=== PATIENT | male | born 1950 | race Caucasian/White ===

== ENCOUNTER 2017-03-07 06:17 | Observation (INO) ==
[2017-03-07] MEDS: HYDROmorphone 2 MG/ML VIAL IV PRN ×4 (06:56→10:23)
[2017-03-07] MEDS ORDERED: LACTATED RINGERS 1,000 ML IV SCH ×2 (07:30→17:15)
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
[2017-03-07] MEDS ORDERED: MIDAZOLAM 2 MG/2 ML VIAL ONE (07:37)
[2017-03-07] MEDS ORDERED: MIDAZOLAM 2 MG/2 ML VIAL IV ONE ×2 (07:39→15:40)
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
[2017-03-07 08:17] LABS: Basophils # (Auto) 0 K/mcL (0.0-0.3); Basophils % (Auto) 0.2 % (0.0-2.0); Eosinophils # (Auto) 0.2 K/mcL (0.0-0.7); Eosinophils % (Auto) 1.5 % (0.0-7.0); Granulocytes % (Auto) 85.4 % (38.0-78.0); Lymphocytes # (Auto) 0.7 K/mcL (1.5-4.8); Lymphocytes % (Auto) 6.1 % (15.5-49.0); Mean Cell Volume 92.8 fL (80.0-100.0); Mean Corpuscular HGB Conc 33.7 g/dL (31.0-36.0); Mean Corpuscular Hemoglobin 31.3 pg (26.0-34.0); Monocytes # (Auto) 0.7 K/mcL (0.1-0.9); Monocytes % (Auto) 6.8 % (1.0-12.0); Platelet Count 197 K/mcL (140-440); RBC 4.13 M/mcL (4.50-5.90); Red Cell Distribution Width 14.5 % (11.5-14.5)
[2017-03-07] MEDS ORDERED: ceFAZolin 1 GM VIAL IV ONE (08:29)
[2017-03-07 08:37] LABS: ALT/SGPT 22 U/l (0-40); Albumin/Globulin Ratio 1.5 (1.0-2.3); Alkaline Phosphatase 62 U/L (39-117); Blood Urea Nitrogen 18 mg/dl (8-23)
--- NOTE | 2017-03-07 09:06 | XRay Report ---
HISTORY: Reason for Exam:preop to repair a fractured leg FINDINGS: Mildly prominent increased interstitial lung markings are present throughout both lungs. Lung bones are normal. There is no consolidating infiltrate, mass or congestive heart failure or pleural effusion. The heart size is normal. There is a scoliotic curvature in the thoracic and lumbar spine. IMPRESSION: Mild interstitial lung disease bilaterally. This could be due to pulmonary fibrosis or an interstitial inflammatory process. Interpreted and Authenticated by: Maynor 03/07/17
[2017-03-07 09:49] LABS: Creatine Kinase 615 IU/L (24-195)
[2017-03-07 11:03] LABS: Appearance,Urine CLEAR; Bacteria,Urine 0 /hpf (0); Bilirubin,Urine NEG (NEG); Color,Urine YELLOW; Glucose,Urine (UA) NEGATIVE (NEG); Leukocyte Esterase,Urine NEG /uL (NEG); Mucus,Urine FEW /hpf (0); Protein,Urine NEG (NEG); Specific Gravity,Urine 1.017 (1.000-1.035); Urine Blood 0.03 mg/dL (<0.03); Urine RBC 1 /hpf (0-1); Urine Squamous Epithelial Cell 0 /hpf (0-4); Urine WBC < 1 /hpf (0-4); Urobilinogen,Urine NEG (NEG)
[2017-03-07] MEDS ORDERED: FLUMAZENIL 0.1 MG/ML ML IV ONE (11:25)
[2017-03-07] MEDS ORDERED: MAGNESIUM SULFATE 2 GM/50 ML BAG IV PRN ×2 (11:28→19:16)
[2017-03-07] MEDS ORDERED: POTASSIUM CHLORIDE 20 MEQ PACKET PO PRN ×2 (11:28→19:16)
[2017-03-07] MEDS ORDERED: 0.9 % SODIUM CHLORIDE 1,000 ML IV SCH (11:28)
[2017-03-07] MEDS ORDERED: traZODone HCL 50 MG TABLET PO PRN ×2 (11:28→19:16)
[2017-03-07] MEDS ORDERED: guaiFENesin/CODEINE 10 ML UDC PO PRN ×2 (11:28→19:16)
[2017-03-07] MEDS ORDERED: ACETAMINOPHEN 1,000 MG/100 ML BOTTLE IV PRN (11:28)
[2017-03-07] MEDS ORDERED: ONDANSETRON 4 MG/2 ML VIAL IV PRN ×3 (11:28→19:16)
[2017-03-07] MEDS ORDERED: HYDROmorphone 2 MG/ML VIAL IV PRN ×2 (11:28→19:16)
[2017-03-07] MEDS ORDERED: traMADol 50 MG TABLET PO PRN ×2 (11:28→19:16)
[2017-03-07] MEDS ORDERED: ACETAMINOPHEN 325 MG TABLET PO PRN ×2 (11:28→19:16)
[2017-03-07] MEDS ORDERED: 0.9 % SODIUM CHLORIDE 1,000 ML IV ONE (12:33)
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
[2017-03-07] MEDS ORDERED: 0.9 % SODIUM CHLORIDE 10 ML SYRINGE IV SCH (14:00)
[2017-03-07] MEDS ORDERED: ceFAZolin 1 GM VIAL IV SCH ×2 (15:30→15:45)
[2017-03-07] MEDS ORDERED: PROPOFOL 200 MG/20 ML VIAL IV ONE (15:40)
[2017-03-07] MEDS ORDERED: LIDOCAINE HCL/PF 100 MG/5 ML SYRINGE IV ONE (15:40)
[2017-03-07] MEDS ORDERED: DEXAMETHASONE 10 MG/ML VIAL IV ONE (15:40)
[2017-03-07] MEDS ORDERED: fentaNYL 250 MCG/5 ML VIAL IV ONE (15:40)
[2017-03-07] MEDS ORDERED: ONDANSETRON 4 MG/2 ML VIAL IV ONE (15:40)
[2017-03-07] MEDS ORDERED: ACETAMINOPHEN 1,000 MG/100 ML BOTTLE IV ONE (17:08)
[2017-03-07] MEDS ORDERED: LACTATED RINGERS 250 ML IV PRN (17:08)
[2017-03-07] MEDS ORDERED: IPRATROPIUM/ALBUTEROL 3 ML AMPUL.NEB NEB PRN (17:08)
[2017-03-07] MEDS ORDERED: diphenhydrAMINE 50 MG/ML VIAL IV PRN (17:08)
[2017-03-07] MEDS ORDERED: PROMETHAZINE 25 MG/ML VIAL IV PRN (17:08)
[2017-03-07] MEDS ORDERED: NALOXONE HCL 0.4 MG/ML VIAL IV PRN (17:08)
[2017-03-07] MEDS ORDERED: MEPERIDINE 25 MG/ML SYRINGE IV PRN (17:08)
[2017-03-07] MEDS ORDERED: BENZOCAINE/MENTHOL 1 LOZENGE PO PRN (17:08)
[2017-03-07] MEDS ORDERED: fentaNYL 100 MCG/2 ML VIAL IV PRN (17:08)
--- NOTE | 2017-03-07 17:55 | Brief Operative Note ---
Date of procedure: 03/07/17 Pre-op diagnosis: tibia/fibula fracture Post-op diagnosis: same Procedure: im rodding Grafts/Implants: Yes (juancho) Anesthesia: GETA Complications: none Surgeon: Antonio Garvin Help Desk Operator: Sai Nicole Estimated blood loss (cc): 20 Specimens Removed/Pathology: none sent Condition: stable Disposition: PACU
[2017-03-07] MEDS: FLUMAZENIL 0.1 MG/ML ML IV PRN ×3 (18:27→18:34)
[2017-03-07] MEDS ORDERED: ACETAMINOPHEN 800 MG/80 ML BOTTLE IV PRN (19:16)
[2017-03-07] MEDS ORDERED: HYDROcodone/APAP 10/325MG TABLET PO PRN (19:16)
[2017-03-07] MEDS: 0.9 % SODIUM CHLORIDE 1,000 ML IV SCH (19:37)
[2017-03-07] MEDS ORDERED: ATORVASTATIN 20 MG TABLET PO SCH (21:00)
[2017-03-07] MEDS ORDERED: DOCUSATE SODIUM 100 MG CAPSULE PO SCH (21:00)
[2017-03-07] MEDS ORDERED: SENNOSIDES/DOCUSATE SODIUM 1 TAB TABLET PO SCH (21:00)
[2017-03-07] MEDS: SENNOSIDES/DOCUSATE SODIUM 1 TAB TABLET PO SCH (22:14)
[2017-03-07] MEDS: DOCUSATE SODIUM 100 MG CAPSULE PO SCH (22:14)
[2017-03-07] MEDS: ceFAZolin 1 GM VIAL IV SCH (22:14)
[2017-03-07] MEDS: ATORVASTATIN 20 MG TABLET PO SCH (22:14)
[2017-03-07] MEDS: 0.9 % SODIUM CHLORIDE 10 ML SYRINGE IV SCH (22:16)
[2017-03-08] MEDS: ceFAZolin 1 GM VIAL IV SCH ×3 (05:28→22:19)
[2017-03-08] MEDS: 0.9 % SODIUM CHLORIDE 10 ML SYRINGE IV SCH ×3 (05:28→22:20)
[2017-03-08 06:56] LABS: Mean Cell Volume 93.2 fL (80.0-100.0); Mean Corpuscular HGB Conc 34.1 g/dL (31.0-36.0); Mean Corpuscular Hemoglobin 31.8 pg (26.0-34.0); Platelet Count 194 K/mcL (140-440); Red Cell Distribution Width 14.4 % (11.5-14.5)
[2017-03-08 07:52] LABS: ALT/SGPT 17 U/l (0-40); Albumin 3.1 gm/dL (3.2-5.2); Albumin/Globulin Ratio 1.3 (1.0-2.3); Alkaline Phosphatase 51 U/L (39-117); Bilirubin,Direct 0.3 mg/dL (0.0-0.3); Blood Urea Nitrogen 17 mg/dl (8-23); Gamma Glutamyl Transpeptidase 13 U/L (8-61); Uric Acid 5.7 mg/dL (2.5-8.0)
--- NOTE | 2017-03-08 07:59 | Internal Med Progress Note ---
Medical - PN: Subj Patient information: Note initiated : 03/08/17 at 7:55 am Service Date, if different from initiated Date: [] Patient: Joel Hernandez 66 y/o M admitted on 03/07/17 for Left Lower Leg Injury. Chief Complaint: [] Interval history: 03/07-patient admitted by orthopedics after tib-fib fracture left side. Hospitalist consult for management of medical issue. Patient seen postoperatively. Pain good control. Sedated. Stable hemodynamics. Extremely malnourished. 03/08-dietary consult for nutritional supplements. Pain in good control. No postoperative events. No overnight events including fever chills lightheadedness dizziness chest pain or bleeding. Alert oriented. No concerns expressed by nursing staff. currently on statin and aspirin for history of CVA.. - Constitutional Vitals: Vital Signs Temp Pulse Resp BP Pulse Ox 96.7 F L 106 H 12 136/70 95 03/08/17 07:40 03/08/17 07:20 03/08/17 07:40 03/08/17 07:40 03/08/17 07:40 Period Temp Pulse Resp BP Sys/Godwin Pulse Ox Last 24 Hr 96.7 F-98.7 F 69-140 10-26 109-159/57-92 89-100 Intake and Output 03/07/17 03/08/17 03/08/17 21:59 05:59 13:59 Intake Total 2600 / 2600 150 / 150 Output Total 500 / 500 800 / 800 Balance 2100 / 2100 -650 / -650 Weight 125 lb 9.6 oz Intake & Output: Intake & Output 03/07/17 03/08/17 03/08/17 21:59 05:59 13:59 Intake Total 2600 / 2600 150 / 150 Output Total 500 / 500 800 / 800 Balance 2100 / 2100 -650 / -650 Weight 125 lb 9.6 oz Intake: IV 2600 / 2600 Oral 150 / 150 Output: Urine Catheter Amount 400 / 400 800 / 800 Estimated Blood Loss 100 / 100 Other: Meal Nourishment/Supplement Percent of Meal Consumed 100% Feeding Ability Independent General appearance: cooperative, no acute distress Exam: alert oriented nonlabored breathing Nondistended abdomen no anxiety Thin and malnourished Medical - PN: Obj Da - Labs CBC & Chem 7: 03/08/17 04:58 03/08/17 04:58 Labs: Abnormal Lab Results 03/08/17 03/08/17 03/07/17 04:58 04:58 10:27 RBC 3.40 L Hgb 10.8 L Hct 31.7 L Gran % Lymph % (Auto) Gran # Lymph # (Auto) Glucose 128 H Calcium 8.4 L Phosphorus 2.4 L Total Bilirubin 1.6 H AST 43 H Lactate Dehydrogenase 251 H Total Creatine Kinase Total Protein 5.4 L Albumin 3.1 L Urine Occult Blood 0.03 A 03/07/17 03/07/17 03/07/17 07:37 07:37 07:23 RBC 4.13 L Hgb 12.9 L Hct 38.3 L Gran % 85.4 H Lymph % (Auto) 6.1 L Gran # 9.1 H Lymph # (Auto) 0.7 L Glucose 108 H Calcium Phosphorus Total Bilirubin 2.2 H AST Lactate Dehydrogenase Total Creatine Kinase 615 H Total Protein Albumin Urine Occult Blood Meds: Medications Acetaminophen (Tylenol) 650 mg PO Q4-6HP PRN PRN Reason: PAIN/FEVER > 101 Last Admin: 03/08/17 05:31 Dose: 650 mg Hydrocodone Bitart/Acetaminophen ([place] 10/325mg) 2 tab PO Q4-6HP PRN PRN Reason: PAIN LEVEL 3-6 Aspirin (Ecotrin) 325 mg PO DAILY [facility] Atorvastatin Calcium (Lipitor) 10 mg PO HS [facility] Last Admin: 03/07/17 22:14 Dose: 10 mg Cefazolin Sodium (Ancef) 1 gm IV Q8H [facility] Last Admin: 03/08/17 05:28 Dose: 1 gm Docusate Sodium (Colace) 100 mg PO BID [facility] Last Admin: 03/07/17 22:14 Dose: 100 mg Guaifenesin/Codeine Phosphate (Robitussin Ac) 10 ml PO Q4HP PRN PRN Reason: Cough Heparin Sodium (Porcine) (Heparin) 5,000 unit SQ Q12 [facility] Hydromorphone HCl (Dilaudid) 0 mg IV Q4HP PRN PRN Reason: PAIN LEVEL > 6 Magnesium Sulfate (Magnesium Sulfate) 2 gm in 50 mls @ 50 mls/hr IV UD PRN PRN Reason: MG = or < 1.7 Sodium Chloride (Sodium Chloride 0.9%) 1,000 mls @ 50 mls/hr IV .Q20H [facility] Stop: 03/09/17 23:27 Last Admin: 03/07/17 19:37 Dose: 50 mls/hr Acetaminophen (Ofirmev) 800 mg in 80 mls @ 160 mls/hr IV Q6HP PRN PRN Reason: PAIN/FEVER > 101 Last Admin: 03/07/17 22:14 Dose: 160 mls/hr Iron Carb/Multivit/Locomotive Firer/Fireman/Folic Acid (Multivitamin W/Minerals) 1 tab PO DAILY [facility] Morphine Sulfate (Morphine) 2 - 5 mg IV Q2HP PRN PRN Reason: PAIN LEVEL > 6 Ondansetron HCl (Zofran) 4 mg IV Q4-6HP PRN PRN Reason: Nausea And Vomiting Potassium Chloride (Klor-Con) 40 meq PO DAILYP PRN PRN Reason: K+ < 3.5 Senna/Docusate Sodium (Senna Plus Tablet) 1 tab PO HS [facility] Last Admin: 03/07/17 22:14 Dose: 1 tab Sodium Chloride (Saline Flush) 10 ml IV Q8 [facility] Last Admin: 03/08/17 05:28 Dose: Not Given Tramadol HCl (Ultram) 50 mg PO Q4-6HP PRN PRN Reason: Pain Trazodone HCl (Desyrel) 50 mg PO HSP PRN PRN Reason: Insomnia Medical - PN: A/P - Time Spent With Patient Total time spent is greater than 50% in coordination of care (as documented) at patient's floor/unit and/or counseling patient: 15 - 24 minutes - Narrative A/P Narrative: * eft tib-fib fracture-status post operative intervention. Managed by orthopedics * Pain management on as needed opioids -Managed by orthopedics hospitalist consult * History of CVA On aspirin and statin * malnourishment-dietary supplements/dietitian consult * Tobacco dependence nicotine patch * DVT prophylaxis on heparin plan * Physical therapy * Nutritional consult * Pre-existing medical condition management on home meds Medical - PN: Qual - Stroke Symptom Onset Unknown: No - VTE Deep Vein Thrombosis/Pulmonary Embolism Present on Admission: No
--- NOTE | 2017-03-08 08:19 | Operative Note ---
DATE OF OPERATION: 03/07/2017 PREOPERATIVE DIAGNOSIS: Left tibia and fibula fracture. POSTOPERATIVE DIAGNOSIS: Left tibia and fibula fracture. OPERATION PROPOSED: Intramedullary rodding, left tibia with open reduction and internal fixation of the fibula. OPERATION PERFORMED: Intramedullary rodding, left tibial with open reduction and internal fixation of the fibula. OPERATING SURGEON: Antonio Garvin MD FILER FINISH: Sai Nicole PA-C INDICATIONS: This is an elderly gentleman with a tibial shaft fracture which was at the junction of the middle and distal third of the diaphysis. The fibula was also fractured in the same region but there was also a quite distal nondisplaced fracture. OPERATION IN DETAIL: Informed consent was obtained. The patient was taken to the operating room where he was provided with appropriate anesthetic and prophylactic antibiotics given. He was carefully positioned. A midline incision was made in the pretibial region. I entered just medial to the patellar tendon. I entered the proximal tibial metaphysis with a pigtail awl and then passed an intramedullary wire. A reduction maneuver was performed and the guidewire was passed across the fracture. I then used a mild reaming and selected a size 10 mm intramedullary joseline from [employer]. This was passed antegrade across the fracture, stabilizing the fracture. I placed proximal and distal locking screws. I then made an incision over the fibula. I dissected down to expose the fracture which was midshaft. I also made a distal incision over the distal lateral malleolus. I used a 1/3 tubular plate and passed it under this skin bridge. A reduction of the fibula fracture was performed and I held reduction with a lobster claw clamp. I placed screws in the lateral malleolus to the distal most fibula fracture, lateral malleolus fracture. I placed screws in the mid portion of the plate which is distal to the major fragment and also proximal to the major fragment, stabilizing the fracture. Wounds were irrigated thoroughly and closed with appropriately. Sterile dressing and a boot were applied. The procedure was tolerated well. No complications. Estimated blood loss was less than 50 mL GDD:michael Job ID: [id number] Doc ID: [id number] Antonio Garvin MD
[2017-03-08] MEDS: DOCUSATE SODIUM 100 MG CAPSULE PO SCH ×2 (08:24→19:52)
[2017-03-08] MEDS: MULTIVIT,THER IRON,CA,FA & MIN 1 TABLET PO SCH (08:24)
[2017-03-08] MEDS: ASPIRIN 325 MG ENTERIC COATED TABLET PO SCH (08:24)
[2017-03-08 08:43] LABS: Band Neutrophils % 2 % (0-10); Monocytes % (Manual) 4 % (1-12); Platelet Estimate NORMAL (NORMAL); RBC Morphology NORMAL (NORMAL); Segmented Neutrophils % 94 % (38-78)
[2017-03-08] MEDS ORDERED: ASPIRIN 325 MG ENTERIC COATED TABLET PO SCH (09:00)
[2017-03-08] MEDS ORDERED: MULTIVIT,THER IRON,CA,FA & MIN 1 TABLET PO SCH (09:00)
[2017-03-08] MEDS: 0.9 % SODIUM CHLORIDE 1,000 ML IV SCH (15:21)
[2017-03-08] MEDS: SENNOSIDES/DOCUSATE SODIUM 1 TAB TABLET PO SCH (19:53)
[2017-03-08] MEDS: ATORVASTATIN 20 MG TABLET PO SCH (19:53)
[2017-03-08] MEDS: HEPARIN 5,000 UNIT/ML VIAL SQ SCH (19:54)
[2017-03-08] MEDS ORDERED: HEPARIN 5,000 UNIT/ML VIAL SQ SCH (21:00)
[2017-03-09] MEDS: ceFAZolin 1 GM VIAL IV SCH (05:56)
[2017-03-09] MEDS: 0.9 % SODIUM CHLORIDE 10 ML SYRINGE IV SCH (05:57)
[2017-03-09 06:22] LABS: ALT/SGPT 16 U/l (0-40); Albumin 3.4 gm/dL (3.2-5.2); Albumin/Globulin Ratio 1.5 (1.0-2.3); Alkaline Phosphatase 53 U/L (39-117); Bilirubin,Direct 0.2 mg/dL (0.0-0.3); Blood Urea Nitrogen 16 mg/dl (8-23); Gamma Glutamyl Transpeptidase 13 U/L (8-61); Uric Acid 4.8 mg/dL (2.5-8.0)
[2017-03-09] MEDS: DOCUSATE SODIUM 100 MG CAPSULE PO SCH (08:51)
[2017-03-09] MEDS: HEPARIN 5,000 UNIT/ML VIAL SQ SCH (08:52)
[2017-03-09] MEDS: ASPIRIN 325 MG ENTERIC COATED TABLET PO SCH (08:52)
[2017-03-09] MEDS: MULTIVIT,THER IRON,CA,FA & MIN 1 TABLET PO SCH (08:52)
--- NOTE | 2017-03-09 11:26 | Discharge Summary ---
Medical - DS: Prov Patient information: Note initiated : 03/09/17 at 11:23 am Service Date, if different from initiated Date: [] Patient: Joel Hernandez 66 y/o M admitted on 03/07/17 for Lt Lower Leg Injury/ Traumatic Lt Tib/Fib Fracture. Date of admission: 03/07/17 11:05 Discharge date: 03/09/17 Admitting clinician: Antonio Garvin Consults: 03/07/17 07:28 Consult to Physician [CONS] Stat Comment: tib/fib fx Consulting Provider: Brooks Saleh Reason For Exam: Physician to Consult 03/07/17 07:29 Consult to Physician [CONS] Stat Comment: t4 Consulting Provider: Antonio Garvin Reason For Exam: Physician to Consult Discharging clinician: Bibi Kraus Medical - DS: Meds - Discharge Medications Prescriptions: HYDROcodone/APAP 10/325MG [Henderson 10/325Mg] 1 tab PO Q6H PRN #40 tab PRN Reason: Pain traMADol [Ultram] 50 - 100 mg PO Q4-6HP PRN #40 tab PRN Reason: Pain Active and Home Medications: Home Medications Acetaminophen [Tylenol] 650 mg PO Q4-6HP PRN #30 tablet 10/14/14 [Rx Confirmed 03/07/17 Last Taken Unknown] Aspirin [Ecotrin] 325 mg PO DAILY #30 tab.ec 10/14/14 [Rx Confirmed 03/07/17 Last Taken Unknown] Atorvastatin [Lipitor] 10 mg PO HS #30 tablet 10/14/14 [Rx Confirmed 03/07/17 Last Taken Unknown] HYDROcodone/APAP 10/325MG [Henderson 10/325Mg] 1 tab PO Q6H PRN #40 tab 03/09/17 [ Rx Last Taken Unknown] traMADol [Ultram] 50 - 100 mg PO Q4-6HP PRN #40 tab 03/09/17 [Rx Last Taken Unknown] Medical - DS: Hosp Hospital course: Mr. Hernandez is a 66 year old M 03/07-patient admitted by orthopedics after tib-fib fracture left side. Hospitalist consult for management of medical issue. Patient seen postoperatively. Pain good control. Sedated. Stable hemodynamics. Extremely malnourished. 03/08-dietary consult for nutritional supplements. Pain in good control. No postoperative events. No overnight events including fever chills lightheadedness dizziness chest pain or bleeding. Alert oriented. No concerns expressed by nursing staff. currently on statin and aspirin for history of CVA. 03/09-patient remained stable. Quite weak and will likely need skilled placement. Arrangements have been made to discharge to [facility] for further skilled care and strengthening. Discharge diagnosis: Left tib-fib fracture - Time Spent with Patient Total time spent providing and/or coordinating discharge services: Greater than 30 minutes Medical - DS: Exam - Constitutional Vitals: Vital Signs Temp Pulse Resp BP Pulse Ox 03/09/17 07:06 98.8 F 20 134/59 92 03/09/17 03:56 97.5 F 76 18 137/67 97 03/09/17 00:00 97.8 F 95 H 20 136/69 96 03/08/17 19:11 99.3 F H 106 H 20 145/77 95 03/08/17 16:00 97.8 F 16 142/64 93 03/08/17 12:00 97.8 F 16 127/59 96 Intake and Output 03/08/17 03/09/17 03/09/17 21:59 05:59 13:59 Intake Total 1227 / 1227 150 / 150 Output Total 1150 / 1150 400 / 400 400 / 400 Balance 77 / -250 / -250 -400 / -400 Intake: IV 987 / 987 Sodium Chloride 0.9% 1,000 ml @ 987 / 987 50 mls/hr IV .Q20H [facility] Rx#: [id number] Oral 240 / 240 150 / 150 Output: Void Amount 1150 / 1150 400 / 400 400 / 400 Other: Meal Nourishment/Supplement Percent of Meal Consumed 100% Feeding Ability Assist with Tray Set Up # Voids 3 1 Weight 126 lb 6.4 oz Additional comments: General: Thin, no acute distress Chest: Mildly diminished throughout, no rales, no wheezes Cardiovascular: Regular, no edema Abdomen: Soft Musculoskeletal: Left lower extremity and walking boot, neurovascularly intact Neuro: Alert, oriented 3, generally weak, but nonfocal. Medical - DS: Data Procedures and tests throughout hospitalization: Date of procedure: 03/07/17 Pre-op diagnosis: tibia/fibula fracture Post-op diagnosis: same Procedure: im rodding Grafts/Implants: Yes (juancho) Anesthesia: GETA Complications: none Surgeon: Antonio Garvin Reception: Sai Nicole Estimated blood loss (cc): 20 Specimens Removed/Pathology: none sent Condition: stable Disposition: PACU Labs on day of discharge: Labs from last 24 hours 03/09/17 04:37 Sodium 140 Potassium 4.1 Chloride 105 Carbon Dioxide 26 Anion Gap 9.0 BUN 16 Creatinine 0.8 GFR Calculation 92 Glucose 91 Uric Acid 4.8 Calcium 8.3 L Phosphorus 2.1 L Magnesium 1.7 Total Bilirubin 1.4 H Direct Bilirubin 0.2 GGT 13 AST 51 H ALT 16 Alkaline Phosphatase 53 Lactate Dehydrogenase 247 Total Protein 5.6 L Albumin 3.4 Globulin 2.2 Albumin/Globulin Ratio 1.5 Triglycerides 79 - Impressions Left leg XR FINDINGS: There are acute obliquely oriented fractures in the distal shaft of the tibia and fibula. Distal ends of both bones are displaced anteriorly. There is moderate anterior angulation at the fracture site. IMPRESSION: Fracture distal tibia and fibula with moderate deformity Medical - DS: A/P - Patient/Caregiver Discharge Instructions Activity: increase activity as tolerated Diet: Regular Diet Additional Instructions: Non Weight Bearing on left leg. Prescriptions: HYDROcodone/APAP 10/325MG [Henderson 10/325Mg] 1 tab PO Q6H PRN #40 tab PRN Reason: Pain traMADol [Ultram] 50 - 100 mg PO Q4-6HP PRN #40 tab PRN Reason: Pain Other Amb Orders: OT Discharge Order Location: Determined By Patient Physical Therapy at Discharge - General Location: Determined By Patient - Follow up Plan Follow up with: Sai Nicole PA-C [Physician Reception] - Disposition: Xfer SNF Prognosis: Fair Rehab Potential: Fair I certify that the patient requires SNF services: Yes Overall status at discharge: patient is not back to baseline Medical - DS: Qual - VTE Deep Vein Thrombosis/Pulmonary Embolism Present on Admission: No
--- NOTE | 2017-03-09 16:05 | Orthopedic Progress Note ---
Subjective Patient information: Note initiated : 03/09/17 at 4:03 pm Service Date, if different from initiated Date: [] Patient: Joel Hernandez 66 y/o M admitted on 03/07/17 for Lt Lower Leg Injury/ Traumatic Lt Tib/Fib Fracture. Chief Complaint: [S/P ORIF of left distal tib/fib fx] Patient is doing well. No particular complaints. Denies any lower extremity weakness, calf tenderness, or SOA. Objective Vital signs: Vital Signs Temp Pulse Resp BP Pulse Ox 03/09/17 12:37 98.3 F 83 20 135/67 94 03/09/17 12:00 98.3 F 20 135/67 94 03/09/17 07:06 98.8 F 20 134/59 92 03/09/17 03:56 97.5 F 76 18 137/67 97 03/09/17 00:00 97.8 F 95 H 20 136/69 96 03/08/17 19:11 99.3 F H 106 H 20 145/77 95 Intake and Output 03/09/17 03/09/17 03/09/17 05:59 13:59 21:59 Intake Total 150 / 150 1240 / 1240 Output Total 400 / 400 600 / 600 Balance -250 / -250 640 / 640 Intake: IV 1000 / 1000 Sodium Chloride 0.9% 1,000 ml @ 1000 / 1000 50 mls/hr IV .Q20H [facility] Rx#: [id number] Oral 150 / 150 240 / 240 Output: Void Amount 400 / 400 600 / 600 Other: Meal Lunch Percent of Meal Consumed 50% Feeding Ability Independent # Voids 1 Intake & Output: Intake & Output 03/09/17 03/09/17 03/09/17 05:59 13:59 21:59 Intake Total 150 / 150 1240 / 1240 Output Total 400 / 400 600 / 600 Balance -250 / -250 640 / 640 Intake: IV 1000 / 1000 Sodium Chloride 0.9% 1,000 ml @ 1000 / 1000 50 mls/hr IV .Q20H [facility] Rx#: [id number] Oral 150 / 150 240 / 240 Output: Void Amount 400 / 400 600 / 600 Other: Meal Lunch Percent of Meal Consumed 50% Feeding Ability Independent # Voids 1 Incision: Yes healing, Yes clean and dry Incision clean and dry: Yes Dressing: Yes clean, Yes dry, Yes intact Weight bearing status: non Neurological exam IM: Yes alert, Yes oriented X3, Yes motor sensory intact, Yes neurovascular intact Extremities exam IM: Yes calf tenderness (negative), Yes Ana's sign (negative) - Labs CBC & BMP: 03/08/17 04:58 03/09/17 04:37 Labs: Orthopedic Labs 03/07/17 07:37 PT 14.0 INR 1.1 03/08/17 03/07/17 04:58 07:37 Hgb 10.8 L 12.9 L Hct 31.7 L 38.3 L Assessment and Plan (1) Fracture of tibia Patient is to remain NWB on LLE. Dressing changes as needed. May use aquacel prior to discharge. Status: Acute
== END 2017-03-09 13:05 ==
LOC: ED 06:17 → MEDSUR 06:17
PROVIDERS: ADMIT Internal Medicine; ATTEND Internal Medicine